=== PATIENT | female | born 1970 | race Caucasian/White ===

== ENCOUNTER 2020-07-20 08:55 | Emergency (ER) | payer SELFPAY ==
[~2020-07-20] VITALS: Ht 157.4 cm; Wt 68.9 kg
[~2020-07-20 08:55] MED LIST: NORCO 325 MG-51 TAB PO
[2020-07-20 10:02] LABS: HEMATOCRIT 43.4 % (37.0-47.0); MEAN CELL VOLUME 90.8 fl (81.0-99.0); MEAN CORPUSCULAR HGB 30.5 pg (27.0-31.0); MEAN CORPUSCULAR HGB CONC 33.6 g/dl (33.0-37.0); MEAN PLATELET VOLUME 8.7 fl (9.6-12.3); PLATELET COUNT AUTOMATED 387 10*3/uL (130-400); RED BLOOD COUNT 4.78 10*6/uL (4.10-5.10); RED CELL DISTRI WIDTH 12.8 % (0-14.5); WHITE BLOOD COUNT 23.3 10*3/uL (4.8-10.8)
[2020-07-20 10:12] LABS: ACT PARTIAL THROMBO TIME 31.6 SECONDS (20.0-32.1)
[2020-07-20 10:18] LABS: ALBUMIN 3.7 gm/dl (3.1-4.5); ALKALINE PHOSPHATASE 122 U/L (45-117); BASOPHILS 1 % (0-1); BUN 7 mg/dl (7-24); CHLORIDE 110 mmol/L (98-107); LIPASE 78 U/L (73-393); PLATELET SUFFICIENCY NORMAL (NORMAL); POTASSIUM 3.5 mmol/L (3.5-5.1); SGOT/AST 18 IU/L (3-35); SGPT/ALT 37 U/L (12-78); SODIUM 139 mmol/L (136-145); TOTAL CELLS COUNTED 100 #CELLS; TOTAL PROTEIN 7.7 gm/dL (6.4-8.2); TROPONIN I < 0.015 ng/ml (<0.045)
[2020-07-20] MEDS ORDERED: DICYCLOMINE HCL20 MG PO (13:07)
== END 2020-07-20 13:39 | disposition home or self-care (01) ==
LOC: ED 08:55
PROVIDERS: Nurse Practitioner Family
DX: K52.9 Noninfective gastroenteritis and colitis, unspecified (principal); Z88.8 Allergy status to other drugs, medicaments and biological substances; Z79.899 Other long term (current) drug therapy